=== PATIENT | male | born 1935 | race Caucasian/White ===

== ENCOUNTER 2019-04-19 17:40 | Inpatient (IN) | payer OTHER ==
[~2019-04-19] VITALS: Ht 182.9 cm; Wt 94.1 kg
[2019-04-19 17:59] LABS: ABSOLUTE NEUTROPHILS 3.1 thou/uL (1.4-8.2); BASOPHILS 0.8 % (0.0-2.0); EOSINOPHILS 3.7 % (0.0-3.0); HEMATOCRIT 40.9 % (42.0-52.0); HEMOGLOBIN 13.9 gm/dL (14.0-18.0); LYMPHOCYTES 25.1 % (24.0-44.0); MCH 29.4 pg (26.0-34.0); MCV 86.4 fL (80.0-100.0); MONOCYTES 8.6 % (1.0-8.0); PLATELET COUNT 138 thou/uL (150-400); POLYS 61.8 % (36.0-66.0); RBC 4.74 mil/uL (4.50-6.00); WBC 5.1 thou/uL (4.0-11.0)
[2019-04-19 18:09] LABS: ANION GAP 9 mmol/L (7-16); BUN 23 mg/dL (7-18); CALCIUM 9.2 mg/dL (8.5-10.1); CHLORIDE 106 mmol/L (98-107); CO2 26 mmol/L (21-32); CREATININE 1.5 mg/dL (0.7-1.3); GLUCOSE 118 mg/dL (74-106); POTASSIUM 4.4 mmol/L (3.5-5.1); SODIUM 141 mmol/L (136-145)
[2019-04-19 18:17] LABS: ALBUMIN 3.6 g/dL (3.4-5.0); MAGNESIUM 1.8 mg/dL (1.8-2.4); SGOT 40 U/L (15-37); SGPT 33 U/L (30-65); TOTAL BILIRUBIN 0.9 mg/dL (<0.1-1.0); TOTAL PROTEIN 7.1 g/dL (6.4-8.2); TROPONIN-I <0.06 ng/mL (<0.06)
[2019-04-19 21:13] VITALS: BP 134/52
[2019-04-19 21:18] VITALS: BP 134/52
[2019-04-19 22:13] VITALS: BP 160/62
[2019-04-19 23:33] LABS: CHOLESTEROL 150 mg/dL (<200); HDL CHOLESTEROL 26 mg/dL (>40); LDL CHOLESTEROL 63 mg/dL (<100); TC:HDL 5.8 Ratio (Not establshd); TRIGLYCERIDE 305 mg/dL (<150); VLDL 61 mg/dL (<40)
[2019-04-19 23:37] LABS: SERUM ASSESSMENT Slight Lipemia
[2019-04-19] MEDS ORDERED: LOPRESSOR25 PO (23:38)
[2019-04-19] MEDS ORDERED: NORVASC5 MG PO (23:39)
[2019-04-19] MEDS ORDERED: GLIPIZIDE 10 MG10 MG PO (23:41)
[2019-04-19] MEDS ORDERED: ZETIA10 MG PO (23:42)
[2019-04-19] MEDS ORDERED: COZAAR 25 MG TA25 M2 PO (23:43)
[2019-04-19] MEDS ORDERED: METFORMIN HCL500 MG PO (23:44)
[2019-04-19] MEDS ORDERED: TRICOR145 MG PO (23:45)
[2019-04-20 00:45] VITALS: BP 137/53
--- NOTE | 2019-04-20 04:15 | NUR ---
PT ADMITTED TO ROOM 210, VSS, SB PER MONITOR, CP RESOLVED WITH NTG GIVEN BY EMS, REMINDED PT TO CALL IF PAIN RETURNED, IV BOLUS OF 500MG GIVEN PT VOIDING PER URINAL, NPO SINCE MNOC, WILL CON'T TO MONITOR PER PPOC.
[2019-04-20 04:38] VITALS: BP 153/63
[2019-04-20 06:53] LABS: ANION GAP 11 mmol/L (7-16); BUN 21 mg/dL (7-18); CALCIUM 8.8 mg/dL (8.5-10.1); CHLORIDE 108 mmol/L (98-107); CO2 25 mmol/L (21-32); CREATININE 1.3 mg/dL (0.7-1.3); GLUCOSE 100 mg/dL (74-106); MAGNESIUM 1.9 mg/dL (1.8-2.4); POTASSIUM 4.2 mmol/L (3.5-5.1); SODIUM 144 mmol/L (136-145); TROPONIN-I <0.06 ng/mL (<0.06)
[2019-04-20 08:05] VITALS: BP 150/72
--- NOTE | 2019-04-20 08:14 | EKG ---
[address] [place] [address] ELECTROCARDIOGRAM REPORT Name: JESSICA POLLACK ULICES Room #: 210-P ADM IN M.R.#: [id number] ������������������ Admission: 04/19/19 ������������������ Attend Phys: Fran Holt MD Discharge: ������������������ Date of : 39 Report #: [id number] ����������������������������������������������������������������� [id number] THIS REPORT FOR: //name// [facility] ED Test Date: 2019-04-19 Test Time: 17:43:08 Pat Name: JESSICA POLLACK Department: Room: 210 Gender: M Sustainable Design Coordinator: [facility] : 1935 Requested By: Lucien Angel Order Number: [id number] MD: Armando Voss Measurements Intervals [place] Rate: 54 P: 32 [place]: 172 QRS: 2 QRSD: 102 T: 28 QT: 442 QTc: 419 Interpretive Statements Sinus bradycardia Abnormal R-wave progression, early transition No previous ECG available for comparison Electronically Signed On 04-20-2019 8:14:18 CDT by Armando Voss [email or web address] ��������������������������������������������� <ELECTRONICALLY SIGNED> ���������������������������������������� By: Armando Voss MD, [facility] ��������������������������������������������� 04/20/19 0814 D: 07/1742 42 Armando Voss MD, FACC /EPI
[2019-04-20 15:26] VITALS: BP 150/72
--- NOTE | 2019-04-20 15:55 | NUR ---
ASSESSMENT CHARTED PT ALERT AND ORIENTED. VSS. DENIED HAVING PAIN OR DISCOMFORT. NEGATIVE NUC STRESS TEST THIS AFTERNOON. ORDERS GIVEN TO DISCHARGE PT TO HOME. DISCHARGE INSTRUCTIONS GIVEN TO PT. PT VERBERLIZE UNDERSTANDING.
== END 2019-04-20 16:09 | disposition home or self-care (01) | DRG 392 ==
LOC: ER 17:40 → 2N 20:21 → EROBS 20:21 → 2N 21:18 → ENTRNSPT 04-20 15:48 → 2N 04-20 16:09
PROVIDERS: Emergency Medicine; Nurse Practitioner Acute Care; ADMIT Internal Medicine
DX: K22.4 Dyskinesia of esophagus (principal); K21.9 Gastro-esophageal reflux disease without esophagitis; I25.10 Atherosclerotic heart disease of native coronary artery without angina pectoris; E11.22 Type 2 diabetes mellitus with diabetic chronic kidney disease; I12.9 Hypertensive chronic kidney disease with stage 1 through stage 4 chronic kidney disease, or unspecified chronic kidney disease; E78.00 Pure hypercholesterolemia, unspecified; N18.9 Chronic kidney disease, unspecified; E78.5 Hyperlipidemia, unspecified; M17.12 Unilateral primary osteoarthritis, left knee; Z95.1 Presence of aortocoronary bypass graft; I25.2 Old myocardial infarction; Z79.84 Long term (current) use of oral hypoglycemic drugs; Z79.899 Other long term (current) drug therapy; R07.89 Other chest pain
CPT/HCPCS: 10081

== ENCOUNTER 2019-05-01 14:56 | Inpatient (IN) | payer OTHER ==
[~2019-05-01] VITALS: Ht 185.4 cm; Wt 90.7 kg
--- NOTE | ~2019-05-01 | HC ---
[place] [address] CONSULTATION Name: JESSICA POLLACK Room #: 423-1 ADM IN M.R.#: [id number] Admission: 05/01/19 ������������������ Attend Phys: Nery Swann MD Discharge: ������������������ Date of : 39 Report #: [id number] THIS REPORT FOR: //name// CC: Anil Swann DATE OF SERVICE: 05/02/2019 HISTORY OF PRESENT ILLNESS: The patient is an 83-year-old white male who underwent a total knee replacement done at ____ hospital by Dr. Connelly, 3 days ago for severe degenerative arthritis. The patient was able to go back home and was doing well initially. He then started having problems with apparently some confusion, had some questionable upper extremity weakness, was needing a lot more assistance and he was admitted to . The thought it may have been the OxyIR and he is no longer taking this and is doing better. There was no noted focal upper extremity weakness and it was not felt that he had sustained a stroke. He was noted to have urinary retention, 750 mL drained in the ED, and he does have a [place] catheter in place. We are seeing him in rehabilitation medicine consultation. He is noted to have acute renal insufficiency. He had a creatinine up to 1.4 with BUN up to 26. PAST MEDICAL HISTORY: Includes [place] with coronary artery disease, coronary artery bypass grafting x 3 in 2013, diabetes mellitus type 2, hypertension, hyperlipidemia, left knee scope, and TURP. MEDICATIONS: Please see the full medication listing. This includes vitamins, herbals, and supplements per report. ALLERGIES: No known drug allergies. SOCIAL HISTORY: Lives in a house, 3 steps in with spouse. There is a son, daughter and son-in-law as well that lives there. He was premorbidly independent with ADLs, IADLs and did yard work. REVIEW OF SYSTEMS: No current complaints of chest pain, shortness of breath, abdominal discomfort. PHYSICAL EXAMINATION: GENERAL: An 83-year-old white male appears younger than stated age. He is alert and oriented. VITAL SIGNS: Last recorded temperature 98.4, pulse 70, respirations 17, blood pressure 145/69. HEENT: Appeared to be benign. NEUROLOGIC: Cranial nerves are grossly intact. Facies are symmetric. He has functional range of motion of both upper extremities. Strength is grade 4-4+/5. DTRs are trace to 1. Lower extremities: He has good strength of the right [address] [place] [address] CONSULTATION Name: JESSICA POLLACK Room #: 423-1 [facility] IN [facility]#: [id number] Admission: 05/01/19 ������������������ Attend Phys: Nery Swann MD Discharge: ������������������ Date of : 39 Report #: [id number] lower extremity. Tone appeared to be intact. Left knee is dressed. He is able to forward flex that knee to about 80 degrees for me actively. There is no calf swelling. He has good strength proximal and distal. In occupational therapy, he does need mod assist for lower body dressing, mid to mod assist for ADLs. Toilet transfers were noted to be standby assistance. ASSESSMENT: The patient is an 83-year-old male with the following problem list: 1. Medical complex with generalized debilitation. 2. Prior left total knee replacement 3 days ago. 3. Severe degenerative arthritis. 4. Pain management issues. 5. Urinary retention with [place] catheter placement. 6. Acute renal insufficiency. 7. Coronary artery disease with prior bypass in 2013. 8. Diabetes mellitus type 2. PLAN: Therapy evaluations are underway. We will be glad to follow regarding his rehab therapy needs, as he further medically stabilizes. ��������������������������������������������� ���������������������������������������� By: ��������������������������������������������� 1217 0054 Bronson Moy MD /nt
[~2019-05-01 14:56] MED LIST: COZAAR 25 MG TA25 M2 PO; GLIPIZIDE 10 MG10 MG PO; LOPRESSOR25 PO; METFORMIN HCL500 MG PO; NORVASC5 MG PO; TRICOR145 MG PO; ZETIA10 MG PO
[2019-05-01 14:57] VITALS: BP 147/61
[2019-05-01] MEDS ORDERED: TRAMADOL 50 MG50 MG PO (15:06)
--- NOTE | 2019-05-01 15:30 | EKG ---
[place] [address] [place] [address] ELECTROCARDIOGRAM REPORT Name: POLLACKJESSICA Room #: [facility] M.R.#: [id number] ������������������ Admission: ������������������ Attend Phys: Discharge: ������������������ Date of : 39 Report #: [id number] ����������������������������������������������������������������� [id number] THIS REPORT FOR: //name// [facility] ED Test Date: 2019-05-01 Test Time: 15:04:23 Pat Name: JESSICA POLLACK Department: Room: Gender: M Guest Services Manager: ALONSO : 1935 Requested By: Kacey Hong Order Number: [id number] MD: Armando Voss Measurements Intervals [place] Rate: 79 P: 46 [place]: 163 QRS: 8 QRSD: 101 T: 38 QT: 376 QTc: 432 Interpretive Statements Sinus rhythm Inferior infarct, old Compared to ECG 04/19/2019 17:43:08 Sinus bradycardia no longer present Electronically Signed On 05-01-2019 15:30:26 CDT by Armando Voss [email or web address] ��������������������������������������������� <ELECTRONICALLY SIGNED> ���������������������������������������� By: Armando Voss MD, [facility] ��������������������������������������������� 05/01/19 1530 1504 [id number] Armando Voss MD, FACC /EPI
[2019-05-01 15:38] LABS: ABSOLUTE NEUTROPHILS 4.8 thou/uL (1.4-8.2); BASOPHILS 0.5 % (0.0-2.0); EOSINOPHILS 1.9 % (0.0-3.0); HEMATOCRIT 33.2 % (42.0-52.0); HEMOGLOBIN 11.5 gm/dL (14.0-18.0); LYMPHOCYTES 13.1 % (24.0-44.0); MCH 29.8 pg (26.0-34.0); MCHC 34.5 g/dL (28.0-37.0); MCV 86.1 fL (80.0-100.0); MONOCYTES 9.8 % (1.0-8.0); PLATELET COUNT 173 thou/uL (150-400); POLYS 74.7 % (36.0-66.0); RBC 3.86 mil/uL (4.50-6.00); RDW 15.1 % (10.5-14.5); WBC 6.4 thou/uL (4.0-11.0)
[2019-05-01 15:45] LABS: ANION GAP 8 mmol/L (7-16); BUN 26 mg/dL (7-18); CALCIUM 9.6 mg/dL (8.5-10.1); CHLORIDE 100 mmol/L (98-107); CO2 27 mmol/L (21-32); CREATININE 1.4 mg/dL (0.7-1.3); GLUCOSE 192 mg/dL (74-106); SODIUM 135 mmol/L (136-145)
[2019-05-01 15:55] LABS: ALBUMIN 2.9 g/dL (3.4-5.0); LIPASE 72 U/L (73-393); SGOT 23 U/L (15-37); SGPT 19 U/L (30-65); TOTAL BILIRUBIN 0.7 mg/dL (<0.1-1.0); TROPONIN-I <0.06 ng/mL (<0.06)
[2019-05-01 16:12] LABS: URINE BILIRUBIN NEGATIVE (Negative); URINE BLOOD 2+ (Negative); URINE CLARITY CLEAR; URINE COLOR YELLOW; URINE GLUCOSE-RANDOM* TRACE (Negative); URINE KETONES NEGATIVE (Negative); URINE LEUKOCYTES-REFLEX NEGATIVE (Negative); URINE NITRITE-REFLEX NEGATIVE (Negative); URINE PROTEIN (DIPSTICK) TRACE (Negative); URINE SPECIFIC GRAVITY 1.025 (1.005-1.035)
[2019-05-01 16:21] LABS: BACTERIA-REFLEX 1-9 Few /HPF (None Seen); CASTS None Seen /LPF (None Seen); CRYSTALS None Seen /LPF (None Seen); SQUAMOUS None Seen /LPF (0-3); URINE RBC 3-10 Few /HPF (0-2); URINE WBC-REFLEX None Seen /HPF (0-5)
[2019-05-01 18:02] VITALS: BP 144/63
[2019-05-01 18:08] LABS: FOLIC ACID 10.6 ng/mL (8.6-58.9); TSH 1.502 uIU/mL (0.358-3.740)
[2019-05-01 18:12] VITALS: BP 149/60
[2019-05-01] MEDS ORDERED: XARELTO10 MG PO ×2 (18:21)
[2019-05-01 18:32] VITALS: BP 152/63
[2019-05-01 19:22] VITALS: BP 159/75
--- NOTE | 2019-05-01 19:33 | NUR ---
Pt came to unit from ED approx 1814. Admission hx and education completed. Pt settled in bed. Vital signs stable. Report given to rigo BOWLES.
--- NOTE | 2019-05-02 03:06 | NUR ---
ASSUMED PT CARE 1899. PT ALERT AND ORIENTED. REASSESSMENT COMPLETE, VSS. IV DRESSING C/D/I. BANDAGE WRAP TO L KNEE, POST OP TOTAL KNEE REPLACEMENT. THIGH HIGH ANN MARIE HOSE ON. REPORTS PAIN, SEE EMAR. DENIES N/V. URINAL AT BEDSIDE. CALL LIGHT AND PERSONAL BELONINGS WITHIN REACH, WILL CONTINUE POC UNTIL EOS.
[2019-05-02 05:23] VITALS: BP 150/77
[2019-05-02 06:41] LABS: HEMATOCRIT 32.3 % (42.0-52.0); HEMOGLOBIN 11.1 gm/dL (14.0-18.0); MCH 29.6 pg (26.0-34.0); MCHC 34.3 g/dL (28.0-37.0); MCV 86.3 fL (80.0-100.0); RBC 3.74 mil/uL (4.50-6.00); RDW 14.7 % (10.5-14.5); WBC 5.4 thou/uL (4.0-11.0)
--- NOTE | 2019-05-02 08:00 | NUR ---
ASSESMENT COMPLETED. VSS. A/O. DENIES PAIN EXCEPT WHEN MOVING. REFUSES PAIN MEDS AT THIS TIME. NO NOTED SOA. NO NV. PT RESTING IN BED. ATTEMPTED TO VOID BUT UNSUCCESFUL. BLADDER SCANNED OVER 999. PLACE PAGE TO DR. YANES- WAITING FOR ORDERS/CALL BACK. NO OTHER CONCERNS AT THIS TIME. WILL CONT. TO MONITOR.
[2019-05-02 08:13] VITALS: BP 145/69
--- NOTE | 2019-05-02 12:49 | NUR ---
INITIAL ASSESSMENT: Pt evaluated for d/c planning needs. Reviewed chart and spoke with nurse, physician, pt and spouse. Pt is alert and oriented. Pt had knee replacement surgery at [facility] and spent one night in-patient. Pt was d/c home with [facility]. Pt has walker at home. Spoke with [facility] and they are agreeable to accept pt back on d/c from hospital. Spouse currently has brace on her arm and said she is not able to provide much assistance to pt. They are looking into pt going to inpatient rehab or skilled if he does not qualify for rehab. Will await input from PT re: recommendation. If pt needs to go to SNF, they would prefer [facility].
[2019-05-02 16:00] VITALS: BP 117/50
[2019-05-02 19:12] VITALS: BP 139/57
[2019-05-03 00:05] LABS: GLYCOHEMOGLOBIN (HGB A1C) 7.2 % (4.8-5.6)
--- NOTE | 2019-05-03 01:51 | NUR ---
PT C/O DISCOMFORT ON HIS L KNEE,MANAGED WITH PO MED.SCHWARTZ CATH IN PLACE. PT PULLED HIS IV OUT,NEW ONE PUT ON HIS L WRIST,PT TOLERATED WELL.PT REFUSED REPOSITIONING,STATED THAT HE CAN REPOSITION SELF IN BED.POLAR PACK IN PLACE ON HIS KNEE.PT RESTING COMFORTABLY ON HIS BED AT THIS TIME.FALL PRECAUTIONS IN PLACE,CALL LIGHT WITHIN REACH.
[2019-05-03 04:03] VITALS: BP 143/52
[2019-05-03 08:14] VITALS: BP 136/54
[2019-05-03] MEDS ORDERED: FLOMAX0.4 MG PO (09:35)
--- NOTE | 2019-05-03 10:06 | NUR ---
FAXED REFERRAL TO [facility] SPOKE WITH CAS IN ADM SHE WILLREVIEW. DCP TO FOLLOW.
--- NOTE | 2019-05-03 13:43 | NUR ---
Following for d/c planning needs. SPoke with pt and spouse and daughter. Pt was evaluated by [address] [place] [address] and accepted, but they currently do not have a bed available. Asked store planner to send referral to [facility]. [facility] liaison met with pt and spouse and they are in agreement with plans to go to [facility] today. Chart copied. Patient choice letter signed and is on chart. Notified manager workers compensation. No other needs identified. store planner to arrange transport.
--- NOTE | 2019-05-03 14:32 | NUR ---
PT DISCHARGING TODAY TO [facility] FAXED DC ORDERS/SUMMARY SPOKE WITH DIAN IN ADM SHE RECEIVED DC ORDERS AND ARRANGED TRANSPORT FOR 1730 TODAY. FAMILY NOTIFIED AT BEDSIDE BY JOAQUIM. UNIT NOTIFIED AND CHART COPY PER US. RN TO CALL REPORT TO [phone].
--- NOTE | 2019-05-03 15:48 | NUR ---
PATIENT IS AN APPROPRIATE ACUTE REHAB CANDIDATE. PATIENT HAS MADE THE DECISION TO GO TO [facility] FOR ACUTE REHAB CARE. THANK YOU FOR THIS REFERRAL.
[2019-05-03 17:17] VITALS: BP 119/62
--- NOTE | 2019-05-03 18:15 | NUR ---
Assessment completed.vss.Pt in and out of room today with therapist for ambulation.Good endurance noted.Dr Swann here,dc order noted.Pt said she charissa't take pt home due to wrist fx and would like pt dc to rehab or snf. vending manager assisted in transfer pt to [facility] rehab.Attempted made x2 to call report but phone rings for over 3minutes without answering from staff. Pt dc per rosio at 1810 accompanied by his family.
== END 2019-05-03 18:18 | DRG 684 ==
LOC: ER 14:56 → 4E 16:44 → EROBS 16:44 → 4E 18:05
PROVIDERS: Nurse Practitioner Family; ADMIT Internal Medicine
DX: N17.9 Acute kidney failure, unspecified (principal); R33.9 Retention of urine, unspecified; Z96.652 Presence of left artificial knee joint; I25.10 Atherosclerotic heart disease of native coronary artery without angina pectoris; E78.5 Hyperlipidemia, unspecified; E11.22 Type 2 diabetes mellitus with diabetic chronic kidney disease; N18.9 Chronic kidney disease, unspecified; I12.9 Hypertensive chronic kidney disease with stage 1 through stage 4 chronic kidney disease, or unspecified chronic kidney disease; Z79.84 Long term (current) use of oral hypoglycemic drugs; Z95.1 Presence of aortocoronary bypass graft; I25.2 Old myocardial infarction; Z82.49 Family history of ischemic heart disease and other diseases of the circulatory system; R53.1 Weakness
CPT/HCPCS: 10084